=== PATIENT | male | born 1930 | race Caucasian/White ===

== ENCOUNTER 2020-11-13 13:59 | Inpatient (IN) ==
[2020-11-13] MEDS ORDERED: ONDANSETRON 4 MG/2 ML VIAL ONE (14:57)
[2020-11-13] MEDS ORDERED: HYDROmorphone 2 MG/1 ML VIAL ONE (14:58)
[2020-11-13] MEDS ORDERED: ONDANSETRON 4 MG/2 ML VIAL IV STA (15:06)
[2020-11-13] MEDS ORDERED: HYDROmorphone 2 MG/1 ML VIAL IV STA (15:06)
[2020-11-13] MEDS ORDERED: ASPIRIN EC 81 MG TABLET PO STA (15:43)
[2020-11-13] MEDS ORDERED: METOPROLOL TARTRATE 25 MG TABLET PO STA (15:43)
[2020-11-13] MEDS ORDERED: MORPHINE 4 MG/1 ML VIAL IV PRN ×2 (15:49)
[2020-11-13] MEDS ORDERED: ONDANSETRON 4 MG/2 ML VIAL IV PRN (15:54)
[2020-11-13] MEDS ORDERED: DEXTROSE 50% 25 GM/50 ML VIAL IV PRN ×2 (15:54)
[2020-11-13] MEDS ORDERED: hydrALAZINE 20 MG/1 ML VIAL IV PRN (15:54)
[2020-11-13] MEDS ORDERED: ACETAMINOPHEN 325 MG TABLET PO PRN (15:54)
[2020-11-13] MEDS ORDERED: GLUCAGON 1 MG VIAL IM PRN (15:54)
[2020-11-13] MEDS ORDERED: DOCUSATE SODIUM 100 MG CAPSULE PO PRN (15:54)
[2020-11-13] MEDS: INSULIN LISPRO 100 UNIT/ML SUBCUT SCH ×2 (18:08→21:43)
[2020-11-13] MEDS: SODIUM CHLORIDE 0.9% 1,000 ML IV SCH (19:00)
[2020-11-13 19:17] LABS: Risk Ratio 1.68; Thyroid Stimulating Hormone 3.69 uIU/ml (0.358-3.74)
[2020-11-13] MEDS: METOPROLOL TARTRATE 25 MG TABLET PO SCH (21:43)
[2020-11-14] MEDS: SODIUM CHLORIDE 0.9% 1,000 ML IV SCH (05:07)
[2020-11-14 05:21] LABS: Basophils % 0.1 % (0.0-0.8); Eosinophils # 0.1 10*3/uL (0.0-0.87); Eosinophils % 0.7 % (0.00-10.9); Hematocrit 35.8 VOL% (42.0-52.0); Hemoglobin 12.5 GM/DL (14.0-18.0); Immature Granulocytes % 0.4 %; Immature Granulocytes Absolute 0.04 #; Lymphocytes % 11.1 % (21.2-54.2); Mean Corpuscular HGB Conc 34.9 GM/DL (32-36); Mean Corpuscular Volume 91.8 FL (87-102); Mean Platelet Volume 10.4 FL (9.6-12.0); Neutrophils % 78.7 % (38.7-73.9); Platelet Count 109 T/CUMM (130-400); Red Cell Distribution Width 12.6 % (9.3-17.3); White Blood Count 9.1 T/CUMM (4-12)
[2020-11-14 05:40] LABS: Calcium 8.3 MG/DL (8.5-10.1)
[2020-11-14] MEDS ORDERED: CLINDAMYCIN INJ 900 MG in PREMIX 1 EACH IV ONE (06:30)
[2020-11-14] MEDS ORDERED: DEXAMETHASONE 4 MG/1 ML VIAL ONE (06:33)
[2020-11-14] MEDS ORDERED: EPINEPHrine 1 MG/ML VIAL ONE (06:34)
[2020-11-14] MEDS ORDERED: ROPIVACAINE 0.5% 30 ML VIAL ONE (06:34)
[2020-11-14] MEDS ORDERED: LIDOCAINE 1% 5 ML VIAL ONE (06:35)
[2020-11-14] MEDS ORDERED: BACITRACIN OINT 0.9 GM PACK TOP ONE (06:41)
[2020-11-14] MEDS ORDERED: fentaNYL 100 MCG/2 ML VIAL ONE (06:44)
[2020-11-14] MEDS ORDERED: SODIUM CHLORIDE 0.9% 100 ML IV ONE (08:28)
[2020-11-14] MEDS ORDERED: TRANEXAMIC ACID 1,000 MG/10 ML VIAL ONE (08:28)
[2020-11-14] MEDS ORDERED: SODIUM CHLORIDE 0.9% 1,000 ML IV ONE (08:28)
[2020-11-14] MEDS ORDERED: PHENYLEPHRINE 1 MG/10 ML SYRINGE IV ONE (08:28)
[2020-11-14] MEDS ORDERED: propofoL 200 MG/20 ML VIAL IV ONE (08:28)
[2020-11-14] MEDS ORDERED: MAGNESIUM HYDROXIDE SUSP 30 ML UDCUP PO PRN (08:45)
[2020-11-14] MEDS ORDERED: PANTOPRAZOLE 40 MG TABLET PO SCH (09:00)
[2020-11-14] MEDS: ASPIRIN EC 81 MG TABLET PO SCH (10:07)
[2020-11-14] MEDS: lisinopriL 5 MG TABLET PO SCH (10:38)
[2020-11-14] MEDS: LACTATED RINGERS 1,000 ML IV SCH ×2 (11:15→22:18)
[2020-11-14] MEDS: INSULIN LISPRO 100 UNIT/ML SUBCUT SCH ×3 (11:52→21:24)
[2020-11-14] MEDS: CLINDAMYCIN INJ 900 MG in PREMIX 1 EACH IV SCH ×2 (12:27→21:07)
[2020-11-14] MEDS: SIMVASTATIN 40 MG TABLET PO SCH (21:07)
[2020-11-14] MEDS: METOPROLOL TARTRATE 25 MG TABLET PO SCH (21:07)
[2020-11-15] MEDS: FONDAPARINUX 2.5 MG/0.5 ML SYRINGE SUBCUT SCH (03:27)
[2020-11-15 05:58] LABS: Basophils % 0.1 % (0.0-0.8); Eosinophils % 0.2 % (0.00-10.9); Hematocrit 33.4 VOL% (42.0-52.0); Hemoglobin 11.4 GM/DL (14.0-18.0); Immature Granulocytes % 0.5 %; Immature Granulocytes Absolute 0.05 #; Lymphocytes # 0.9 10*3/uL (1.4-4.0); Lymphocytes % 9.1 % (21.2-54.2); Mean Corpuscular HGB Conc 34.1 GM/DL (32-36); Mean Platelet Volume 11.6 FL (9.6-12.0); Neutrophils % 81.1 % (38.7-73.9); Red Blood Count 3.59 MC/CUMM (3.8-5.5); Red Cell Distribution Width 12.5 % (9.3-17.3); White Blood Count 9.9 T/CUMM (4-12)
[2020-11-15 06:03] LABS: Platelet Count 91 T/CUMM (130-400)
[2020-11-15 06:14] LABS: Calcium 8.3 MG/DL (8.5-10.1); Osmolality,Calculated 280.4 MOS/KG (273-304); Potassium 3.9 MMOL/L (3.5-5.1)
[2020-11-15 06:43] LABS: Hypochromasia Slight
[2020-11-15 06:44] LABS: Ovalocytes 1+; Platelet Estimate Adequate; Polychromasia Few
[2020-11-15] MEDS: lisinopriL 5 MG TABLET PO SCH (09:48)
[2020-11-15] MEDS: METOPROLOL TARTRATE 25 MG TABLET PO SCH ×3 (09:48→21:31)
[2020-11-15] MEDS: ASPIRIN EC 81 MG TABLET PO SCH (09:48)
[2020-11-15] MEDS: SUCRALFATE 1 GM TABLET PO SCH ×3 (12:08→21:32)
[2020-11-15] MEDS: INSULIN LISPRO 100 UNIT/ML SUBCUT SCH ×3 (19:20→21:00)
[2020-11-15] MEDS: SIMVASTATIN 40 MG TABLET PO SCH (21:32)
[2020-11-16] MEDS: FONDAPARINUX 2.5 MG/0.5 ML SYRINGE SUBCUT SCH (04:23)
[2020-11-16 05:39] LABS: Basophils % 0.4 % (0.0-0.8); Eosinophils # 0.1 10*3/uL (0.0-0.87); Hematocrit 35.2 VOL% (42.0-52.0); Hemoglobin 12.5 GM/DL (14.0-18.0); Lymphocytes % 9.3 % (21.2-54.2); Mean Corpuscular HGB Conc 35.5 GM/DL (32-36); Mean Corpuscular Volume 91.2 FL (87-102); Neutrophils % 79.3 % (38.7-73.9); Red Blood Count 3.86 MC/CUMM (3.8-5.5); Red Cell Distribution Width 12.4 % (9.3-17.3); White Blood Count 10.5 T/CUMM (4-12)
[2020-11-16 05:42] LABS: Platelet Count 90 T/CUMM (130-400)
[2020-11-16 06:05] LABS: Ovalocytes Slight; Platelet Estimate Decreased
[2020-11-16] MEDS: METOPROLOL TARTRATE 25 MG TABLET PO SCH ×2 (10:11→21:01)
[2020-11-16] MEDS: lisinopriL 5 MG TABLET PO SCH (10:11)
[2020-11-16] MEDS: ASPIRIN EC 81 MG TABLET PO SCH (10:11)
[2020-11-16] MEDS: SUCRALFATE 1 GM TABLET PO SCH ×4 (10:11→21:01)
[2020-11-16] MEDS: SODIUM CHLORIDE 0.9% 1,000 ML IV SCH (15:08)
[2020-11-16 15:20] LABS: Bilirubin,Urine Negative (Negative); Blood, Urine Large mg/dL (Negative); Glucose,Urine (UA) Negative (Negative); Ketones,Urine Negative (Negative); Mucus,Urine Moderate /LPF (Occasional); Nitrite,Urine Negative (Negative); Protein,Urine 30 MG/DL; RBC,Urine 263 /HPF (0-4); Squamous Epithelial Cell,Urine Occasional /HPF (0-10); Urine Appearance CLEAR (Clear); Urine Color Yellow (Yellow); Urine Specific Gravity 1.019 (1.001-1.035); WBC,Urine 13 /HPF (0-6)
[2020-11-16] MEDS ORDERED: LEVOFLOXACIN INJ 500 MG in PREMIX 1 EACH IV SCH (16:00)
[2020-11-16 16:42] LABS: Calcium 7.7 MG/DL (8.5-10.1); Osmolality,Calculated 281.4 MOS/KG (273-304); Potassium 3.6 MMOL/L (3.5-5.1)
[2020-11-16] MEDS: INSULIN LISPRO 100 UNIT/ML SUBCUT SCH ×3 (20:22→21:00)
[2020-11-16] MEDS: SIMVASTATIN 40 MG TABLET PO SCH (21:01)
[2020-11-17] MEDS: FONDAPARINUX 2.5 MG/0.5 ML SYRINGE SUBCUT SCH (03:46)
[2020-11-17] MEDS: SODIUM CHLORIDE 0.9% 1,000 ML IV SCH ×2 (05:47→22:55)
[2020-11-17 05:57] LABS: Osmolality,Calculated 276.7 MOS/KG (273-304); Potassium 3.6 MMOL/L (3.5-5.1)
[2020-11-17 06:07] LABS: Basophils % 0.3 % (0.0-0.8); Eosinophils # 0.1 10*3/uL (0.0-0.87); Eosinophils % 1.6 % (0.00-10.9); Hematocrit 32.7 VOL% (42.0-52.0); Immature Granulocytes % 0.4 %; Immature Granulocytes Absolute 0.03 #; Lymphocytes % 12.9 % (21.2-54.2); Mean Corpuscular HGB Conc 33.6 GM/DL (32-36); Mean Corpuscular Volume 95.6 FL (87-102); Mean Platelet Volume 11.1 FL (9.6-12.0); Monocytes % 8.9 % (1.7-12.7); Neutrophils % 75.9 % (38.7-73.9); Platelet Count 113 T/CUMM (130-400); Red Blood Count 3.42 MC/CUMM (3.8-5.5); Red Cell Distribution Width 12.7 % (9.3-17.3); White Blood Count 7.7 T/CUMM (4-12)
[2020-11-17] MEDS: SUCRALFATE 1 GM TABLET PO SCH ×4 (09:13→21:06)
[2020-11-17] MEDS: lisinopriL 5 MG TABLET PO SCH (09:13)
[2020-11-17] MEDS: ASPIRIN EC 81 MG TABLET PO SCH (09:13)
[2020-11-17] MEDS: METOPROLOL TARTRATE 25 MG TABLET PO SCH ×2 (09:13→21:06)
[2020-11-17] MEDS: INSULIN LISPRO 100 UNIT/ML SUBCUT SCH ×4 (09:13→21:06)
[2020-11-17] MEDS ORDERED: lisinopriL 5 MG TABLET PO ONE (12:30)
[2020-11-17] MEDS ORDERED: SIMVASTATIN 40 MG TABLET PO SCH (21:00)
[2020-11-17] MEDS: CEFUROXIME 250 MG TABLET PO SCH (21:06)
[2020-11-17] MEDS: SIMVASTATIN 40 MG TABLET PO SCH (21:06)
[2020-11-18] MEDS: FONDAPARINUX 2.5 MG/0.5 ML SYRINGE SUBCUT SCH (03:15)
[2020-11-18 05:32] LABS: Basophils % 0.3 % (0.0-0.8); Eosinophils # 0.3 10*3/uL (0.0-0.87); Eosinophils % 3.3 % (0.00-10.9); Hematocrit 29.2 VOL% (42.0-52.0); Hemoglobin 10.4 GM/DL (14.0-18.0); Immature Granulocytes % 0.8 %; Immature Granulocytes Absolute 0.07 #; Lymphocytes # 1.4 10*3/uL (1.4-4.0); Lymphocytes % 15.2 % (21.2-54.2); Mean Corpuscular HGB Conc 35.6 GM/DL (32-36); Mean Corpuscular Volume 89.8 FL (87-102); Mean Platelet Volume 10.8 FL (9.6-12.0); Monocytes % 8.4 % (1.7-12.7); Platelet Count 134 T/CUMM (130-400); Red Blood Count 3.25 MC/CUMM (3.8-5.5); Red Cell Distribution Width 12.8 % (9.3-17.3)
[2020-11-18 05:50] LABS: Osmolality,Calculated 280.4 MOS/KG (273-304); Potassium 3.6 MMOL/L (3.5-5.1)
[2020-11-18] MEDS ORDERED: lisinopriL 10 MG TABLET PO SCH (09:00)
[2020-11-18] MEDS: CEFUROXIME 250 MG TABLET PO SCH (09:01)
[2020-11-18] MEDS: ASPIRIN EC 81 MG TABLET PO SCH (09:01)
[2020-11-18] MEDS: SUCRALFATE 1 GM TABLET PO SCH ×2 (09:01→12:20)
[2020-11-18] MEDS: METOPROLOL TARTRATE 25 MG TABLET PO SCH (09:02)
[2020-11-18] MEDS: INSULIN LISPRO 100 UNIT/ML SUBCUT SCH ×2 (09:03→12:20)
[2020-11-18] MEDS ORDERED: METOPROLOL TARTRATE 25 MG TABLET PO ONE (10:30)
[2020-11-18 11:34] VITALS: BP 117/61
[2020-11-18] MEDS ORDERED: METOPROLOL TARTRATE 50 MG TABLET PO SCH (21:00)
== END 2020-11-18 14:27 | disposition swing bed (61) | DRG 482 ==
LOC: EDUNIT# → EDBD → N.ED 13:59 → SUATTDRO 15:17 → N.EDINP 15:17 → N.3E 17:23
PROVIDERS: ADMIT Emergency Medicine; ATTEND Internal Medicine